=== PATIENT | male | born 1975 ===

== ENCOUNTER 2016-10-27 12:05 | Emergency (ER) | payer BC ==
[2016-10-27 12:52] VITALS: BP 136/81
[2016-10-27] MEDS ORDERED: Tetan/Diph/Pertus SYR(Tdap)* 0.5 ML SYR(BOOSTRIX) use SYR IM ONE (12:52)
--- NOTE | 2016-10-27 13:01 | UC ---
Skin Complaint HPI - History of Current Complaint Hx Obtained From: Patient Onset/Duration: Sudden Onset - slipped walking puppy and got PW from branch on R hand Skin Exposure Onset/Duration: Hours Ago - 1-2h Onset Severity: Mild Current Severity: Mild Location: Hand (Right) Character: Redness Aggravating: Touch Alleviating: Cold Compresses Associated Signs & Symptoms: Positive: Negative <Mekhi Franco - Last Filed: 10/27/16 12:55> <Andie Alford - Last Filed: 10/27/16 13:26> - History of Current Complaint Chief Complaint: [facility] Time Seen by Provider: 10/27/16 12:38 Stated Complaint: PUNCTURE WOUND TO HAND - Allergy/Home Medications Allergies/Adverse Reactions: Allergies Allergy/AdvReac Type Severity Reaction Status Date / Time No Known Allergies Allergy Verified 10/27/16 12:45 Review of Systems Constitutional: Negative Respiratory: Negative Cardiovascular: Negative Musculoskeletal: Negative - no other injuries Neurological: Negative Psychological: Negative All Other Systems Reviewed And Are Negative: Yes <Mekhi Franco - Last Filed: 10/27/16 12:55> PMH/Surg Hx/FS Hx/Imm Hx Previously Healthy: Yes Endocrine History Of: Denies: Diabetes, Thyroid Disease Cardiovascular History Of: Denies: Cardiac Disorders, Hypertension, Congestive Heart Failure Respiratory History Of: Denies: COPD, Asthma GI/ History Of: Denies: Ulcer, Renal Disease Psychological History Of: Denies: Anxiety - Surgical History Surgical History: None - Family History Known Family History: Positive: None - Social History 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 Lives: With Family Alcohol Use: Weekly Substance Use Type: None Smoking Status (MU): Never Smoked Tobacco - Immunization History Most Recent Tetanus Shot: 13 YEARS Vaccination Up to Date: No <Mekhi Franco - Last Filed: 10/27/16 12:55> Physical Exam Triage Information Reviewed: Yes Appearance: Well-Appearing, No Pain Distress, Well-Nourished Vital Signs: Initial Vital Signs Temp 98.0 F 10/27/16 12:46 Pulse 53 10/27/16 12:46 Resp 16 10/27/16 12:46 BP 136/81 10/27/16 12:46 Pulse Ox 100 10/27/16 12:46 Vital Signs Reviewed: Yes Respiratory Exam: Normal Cardiovascular Exam: Normal Musculoskeletal Exam: Normal Musculoskeletal: Positive: Strength Intact, ROM Intact Neurological Exam: Normal Psychological Exam: Normal Skin: Positive: Other - 2mm PW base of R thumb, no deformity or active bleeding. no evidence FB <Mekhi Franco - Last Filed: 10/27/16 12:55> Vital Signs: Initial Vital Signs Temp 98.0 F 10/27/16 12:46 Pulse 53 10/27/16 12:46 Resp 16 10/27/16 12:46 BP 136/81 10/27/16 12:46 Pulse Ox 100 10/27/16 12:46 <Andie Alford - Last Filed: 10/27/16 13:26> Course/Dx - Differential Diagnoses - Skin Complaint Differential Diagnoses: Cellulitis, Other - fx, strain thumb, PW, lac - Diagnoses Provider Diagnoses: small PW R hand <Mekhi Franco - Last Filed: 10/27/16 12:55> Discharge <Mekhi Franco - Last Filed: 10/27/16 12:55> <Andie Alford - Last Filed: 10/27/16 13:26> - Discharge Plan Condition: Good Disposition: HOME Patient Education Materials: Puncture Wound (ED), Diphtheria/Acellular Pertussis/Tetanus Vaccine (By injection) Referrals: Tanisha Noel MD [Primary Care Provider] - Additional Instructions: ice and elevate hand for 24-48hours ibuprofen for pain Report signs/symptoms of infection Attestation Statement User Type: Provider - I was available for consult. This patient was seen by the NAN. The patient was not presented to, seen by, or examined by me. <Andie Alford - Last Filed: 10/27/16 13:26>
== END 2016-10-27 13:20 | disposition home or self-care (01) ==
LOC: UCEAST 12:05
DX: S61.431A Puncture wound without foreign body of right hand, initial encounter (principal); W45.8XXA Other foreign body or object entering through skin, initial encounter
CPT/HCPCS: 90471; 90715; 99202; G0463